=== PATIENT | male | born 1935 | race Caucasian/White ===

== ENCOUNTER 2021-03-17 10:36 | Outpatient (CLI) | payer MEDICARE ==
[~2021-03-17 10:36] MED LIST: ALLO100T PO; ASPI-1264 PO; BUPR150T8 PO; CITA20TA28 PO; FAMO-1 PO; HYDR12.522 PO; OMEP-84 PO; SOTA80TA73 PO
== END 2021-03-17 23:59 | disposition home or self-care (01) ==
LOC: 64 CT 10:36
PROVIDERS: ATTEND Podiatrist Foot & Ankle Surgery
DX: M77.31 Calcaneal spur, right foot (principal); M62.571 Muscle wasting and atrophy, not elsewhere classified, right ankle and foot; M19.071 Primary osteoarthritis, right ankle and foot
CPT/HCPCS: 73700

== ENCOUNTER 2023-09-07 15:46 | Emergency (ER) | payer MEDICARE ==
[~2023-09-07] VITALS: Ht 188 cm; Wt 106.8 kg
[2023-09-07 15:50] VITALS: BP 127/83; PULSE 71; RESP 18; TEMP 97.9; O2SAT 98
== END 2023-09-07 17:39 | disposition home or self-care (01) ==
LOC: ER 15:47
DX: S70.01XA Contusion of right hip, initial encounter (principal); S60.222A Contusion of left hand, initial encounter; Z88.0 Allergy status to penicillin; W19.XXXA Unspecified fall, initial encounter; Y93.89 Activity, other specified; Y92.89 Other specified places as the place of occurrence of the external cause; Y99.8 Other external cause status
CPT/HCPCS: 73130; 73502; 99284

== ENCOUNTER 2023-10-26 01:10 | Inpatient (IN) | payer MEDICARE ==
[2023-10-26] VITALS (7 sets, daily range): BP systolic 101–132; BP diastolic 70–79; PULSE 69–70; RESP 12–22; TEMP 97.4–98; O2SAT 94–99
[~2023-10-26] VITALS: Ht 188 cm; Wt 107.3 kg
[2023-10-26 01:35] LABS: BASOPHILS # (AUTO) 0.1 X10'3 (0-0.2); BASOPHILS % (AUTO) 0.9 % (0-1); EOSINOPHILS # (AUTO) 0.2 X10'3 (0-0.9); EOSINOPHILS % (AUTO) 2.5 % (0-6); HEMATOCRIT 39.2 % (42.0-52.0); HEMOGLOBIN 13.2 g/dl (14.0-17.9); LYMPHOCYTES % (AUTO) 22.1 % (21-51); MEAN CORPUSCULAR HEMOGLOBIN 33.3 PG (27.0-31.0); MEAN CORPUSCULAR HGB CONC 33.6 g/dL (33.0-36.5); MEAN CORPUSCULAR VOLUME 99.1 FL (78-98); MEAN PLATELET VOLUME 8.7 FL (7.4-10.4); MONOCYTES # (AUTO) 0.9 X10'3 (0-0.9); MONOCYTES % (AUTO) 10.5 % (2-12); NEUTROPHILS # (AUTO) 5.8 X10'3 (1.8-7.7); PLATELET COUNT 157 X10'3 (140-440); RED BLOOD COUNT 3.96 X10'6 (4.70-6.10); RED CELL DISTRIBUTION WIDTH 15.2 % (11.5-14.5)
[2023-10-26 01:55] LABS: ALBUMIN 3.6 G/DL (3.4-5.0); ANION GAP 5 (8-16); BLOOD UREA NITROGEN 21 MG/DL (7-18); BUN/CREATININE RATIO 11.7 (10.0-20.0); CALCIUM 9.2 MG/DL (8.5-10.1); CHLORIDE 108 MMOL/L (99-107); GLUCOSE 128 MG/DL (70-104); POTASSIUM 3.5 MMOL/L (3.5-5.1); PRO BRAIN NATRIURETIC PEPTIDE 5892 PG/ML (0-450); SODIUM 143 MMOL/L (135-145); TOTAL CARBON DIOXIDE 29.7 MMOL/L (24-32); eCRCL 34 ML/MIN; eGFR 36 ML/MIN
[2023-10-26] MEDS ORDERED: PREG150C47 PO (03:01)
[2023-10-26] MEDS ORDERED: WARF3TAB56 (03:01)
[2023-10-26] MEDS ORDERED: ROSU40TA22 PO (03:01)
[2023-10-26] MEDS ORDERED: METO-384 PO (03:01)
[2023-10-26] MEDS ORDERED: FURO40TA4 PO (03:01)
[2023-10-26] MEDS ORDERED: LEVO25TA7 PO (03:01)
[2023-10-26] MEDS ORDERED: LOSA100T58 PO (03:01)
[2023-10-26] MEDS ORDERED: SPIR25TA5 PO (03:01)
[2023-10-26] MEDS ORDERED: PREG75CA76 PO (03:01)
[2023-10-26] MEDS ORDERED: CETI10TA15 PO (03:12)
[2023-10-26] MEDS ORDERED: acetaminophen 325mg tablet PO PRN (03:35)
[2023-10-26] MEDS ORDERED: magnesium Cl slow-release 64mg tablet PO PRN (03:35)
[2023-10-26] MEDS ORDERED: magnesium hydroxide 30ml (MOM) UD suspension PO PRN (03:35)
[2023-10-26] MEDS ORDERED: magnesium 2GM in 50ml NS 50 ML IV PRN (03:35)
[2023-10-26] MEDS ORDERED: mag hydrox/Alum hydrox/simeth 30ml oral suspension PO PRN (03:35)
[2023-10-26] MEDS ORDERED: magnesium 4gm in 100ml NS 100 ML IV PRN (03:35)
[2023-10-26] MEDS ORDERED: potassium Cl 20 mEq SR tablet PO PRN (03:35)
[2023-10-26] MEDS ORDERED: potassium Cl 40MEQ/1/2NS 520ml 520 ML IV PRN (03:35)
[2023-10-26] MEDS: furosemide 10 MG/1 ML 10ml inj IV ONE (04:13)
[2023-10-26 05:40] LABS: BILIRUBIN,URINE NEGATIVE (Neg); CLARITY,URINE CLEAR (Clear); COLOR,URINE YELLOW (Yellow); GLUCOSE, URINE NEGATIVE (Neg); KETONES,URINE NEGATIVE (Neg); LEUKOCYTE ESTERASE ,URINE NEGATIVE (Neg); NITRITES, URINE NEGATIVE (Neg); OCCULT BLOOD,URINE TRACE-INTACT (Neg); PH,URINE 6.5 (4.8-8.0); PROTEIN,URINE TRACE mg/dl (Neg); UROBILINOGEN,URINE 0.2 E.U/dL (0.2-1.0)
[2023-10-26 05:44] LABS: UA COLLECTION TYPE URINAL
[2023-10-26 05:47] LABS: BACTERIA,URINE NONE SEEN /HPF (Neg); MUCUS STRANDS NONE SEEN /LPF (Neg); RBC,URINE 0-2 /HPF (0-2); SQUAMOUS EPITHELIAL CELL,UR NONE SEEN /LPF (FEW); WBC,URINE NONE SEEN /HPF (0-4)
[2023-10-26 07:21] LABS: ALANINE AMINOTRANSFERASE 25 U/L (12-78); ALBUMIN 3.7 G/DL (3.4-5.0); ALBUMIN/GLOBULIN RATIO 1.1 (1.1-1.5); ALKALINE PHOSPHATASE 71 IU/L (46-116); ASPARTATE AMINO TRANSFERASE 23 U/L (10-37); BILIRUBIN,TOTAL 1.3 MG/DL (0.1-1.0); MAGNESIUM 2.1 MG/DL (1.5-2.4); PHOSPHORUS 2.6 MG/DL (2.3-4.5); TOTAL PROTEIN 7.1 G/DL (6.4-8.2)
[2023-10-26 07:39] LABS: BILIRUBIN,DIRECT 0.4 MG/DL (0-0.3)
[2023-10-26] MEDS: K and/or MAG REPLACEMENT MC SCH (08:00)
[2023-10-26] MEDS: docusate sod 100mg capsule PO SCH (08:00)
[2023-10-26] MEDS: furosemide 40mg/4ml inj IV SCH (08:03)
[2023-10-26] MEDS: heparin, porcine 5000 units/ml vial SQ SCH (08:05)
[2023-10-26 08:10] LABS: HEMOGLOBIN A1C 5.7 % (4.5-6.2)
[2023-10-26] MEDS: ciprofloxacin lact 400MG/200ML 200 ML IV SCH (12:13)
[2023-10-26] MEDS: metroNIDAZOLE-Flagyl 500mg/NS 100 ML IV SCH (13:30)
[2023-10-26] MEDS: ondansetron/PF 4mg/2ml inj IV PRN (19:23)
[2023-10-26] MEDS: pantoprazole 40 MG vial IV SCH (20:40)
[2023-10-27 02:00] VITALS: BP 114/67; PULSE 71; RESP 18; TEMP 98.4; O2SAT 94
[2023-10-27 06:00] VITALS: BP 124/66; PULSE 70; RESP 18; TEMP 98.1; O2SAT 95
[2023-10-27 07:13] LABS: BASOPHILS # (AUTO) 0.1 X10'3 (0-0.2); BASOPHILS % (AUTO) 1.1 % (0-1); EOSINOPHILS # (AUTO) 0.3 X10'3 (0-0.9); EOSINOPHILS % (AUTO) 3.3 % (0-6); HEMATOCRIT 43.5 % (42.0-52.0); HEMOGLOBIN 14.9 g/dl (14.0-17.9); LYMPHOCYTES # (AUTO) 1.9 X10'3 (1.1-4.8); LYMPHOCYTES % (AUTO) 24.4 % (21-51); MEAN CORPUSCULAR HEMOGLOBIN 33.9 PG (27.0-31.0); MEAN CORPUSCULAR HGB CONC 34.2 g/dL (33.0-36.5); MEAN CORPUSCULAR VOLUME 99.2 FL (78-98); MEAN PLATELET VOLUME 9.3 FL (7.4-10.4); MONOCYTES % (AUTO) 12.8 % (2-12); NEUTROPHILS # (AUTO) 4.5 X10'3 (1.8-7.7); NEUTROPHILS % (AUTO) 58.4 % (42-75); PLATELET COUNT 193 X10'3 (140-440); RED BLOOD COUNT 4.38 X10'6 (4.70-6.10); RED CELL DISTRIBUTION WIDTH 15.5 % (11.5-14.5); WHITE BLOOD COUNT 7.7 X10'3 (4.5-11.0)
[2023-10-27 07:30] LABS: ALBUMIN 3.6 G/DL (3.4-5.0); ANION GAP 7 (8-16); BLOOD UREA NITROGEN 27 MG/DL (7-18); BUN/CREATININE RATIO 14.8 (10.0-20.0); CALCIUM 10.1 MG/DL (8.5-10.1); CHLORIDE 103 MMOL/L (99-107); CHOL/HDL RATIO 2.1 (0.00-4.99); CHOLESTEROL 124 MG/DL (0-200); CREATININE 1.83 MG/DL (0.60-1.10); GLUCOSE 100 MG/DL (70-104); HDL CHOLESTEROL 59 MG/DL (35-60); LDL CHOLESTEROL 55 MG/DL (50-100); PHOSPHORUS 4.2 MG/DL (2.3-4.5); SODIUM 141 MMOL/L (135-145); TOTAL CARBON DIOXIDE 30.7 MMOL/L (24-32); TRIGLYCERIDES 43 MG/DL (20-135); eCRCL 33 ML/MIN; eGFR 35 ML/MIN
[2023-10-27 07:33] LABS: POTASSIUM 3.3 MMOL/L (3.5-5.1)
[2023-10-27 07:39] LABS: MAGNESIUM 2.1 MG/DL (1.5-2.4)
[2023-10-27] MEDS: potassium Cl 20 mEq SR tablet PO PRN (07:55)
[2023-10-27 08:00] VITALS: RESP 18; O2SAT 95
[2023-10-27] MEDS ORDERED: PREG150C47 PO (11:05)
== END 2023-10-27 12:49 | disposition home or self-care (01) | DRG 291 ==
LOC: ER 01:11 → ED HOLD 03:37 → PCU 3S 04:34
PROVIDERS: ADMIT Internal Medicine Pulmonary Disease; ATTEND Internal Medicine
DX: I13.0 Hypertensive heart and chronic kidney disease with heart failure and stage 1 through stage 4 chronic kidney disease, or unspecified chronic kidney disease (principal); I50.23 Acute on chronic systolic (congestive) heart failure; N18.4 Chronic kidney disease, stage 4 (severe); I48.0 Paroxysmal atrial fibrillation; I25.5 Ischemic cardiomyopathy; I25.10 Atherosclerotic heart disease of native coronary artery without angina pectoris; K21.9 Gastro-esophageal reflux disease without esophagitis; G62.9 Polyneuropathy, unspecified; E78.5 Hyperlipidemia, unspecified; G89.4 Chronic pain syndrome; I73.9 Peripheral vascular disease, unspecified; G47.33 Obstructive sleep apnea (adult) (pediatric); Z95.810 Presence of automatic (implantable) cardiac defibrillator; I25.2 Old myocardial infarction; Z88.0 Allergy status to penicillin; Z79.899 Other long term (current) drug therapy
CPT/HCPCS: 36415; 71045; 74176; 80048; 80061; 80076; 81001; 83036; 83735; 83880; 84100; 84145; 84484; 85025; 87081; 93005; 93306; 97161; 97530; 99285; C9113; G0378; J0744; J1644; J1940; J2405; J3490; J7040

== ENCOUNTER 2024-02-14 15:37 | Inpatient (IN) | payer MEDICARE ==
[~2024-02-14] VITALS: Ht 190.5 cm; Wt 107.0 kg
[~2024-02-14 15:37] MED LIST changes: -ASPI-1264 PO; +FURO40TA4 PO; -HYDR12.522 PO; +LEVO25TA7 PO; +LOSA100T58 PO; +METO-384 PO; +PREG150C47 PO; +PREG75CA76 PO; +ROSU40TA71 PO; +SPIR25TA5 PO; +WARF3TAB56
[2024-02-14 16:05] LABS: BASOPHILS % (AUTO) 0.5 % (0-1); EOSINOPHILS # (AUTO) 0.1 X10'3 (0-0.9); HEMATOCRIT 42.6 % (42.0-52.0); HEMOGLOBIN 14.1 g/dl (14.0-17.9); LYMPHOCYTES # (AUTO) 1.7 X10'3 (1.1-4.8); LYMPHOCYTES % (AUTO) 21.5 % (21-51); MEAN CORPUSCULAR HEMOGLOBIN 33.2 PG (27.0-31.0); MEAN CORPUSCULAR HGB CONC 33.1 g/dL (33.0-36.5); MEAN CORPUSCULAR VOLUME 100.2 FL (78-98); MEAN PLATELET VOLUME 8.7 FL (7.4-10.4); MONOCYTES # (AUTO) 0.7 X10'3 (0-0.9); MONOCYTES % (AUTO) 9.5 % (2-12); NEUTROPHILS # (AUTO) 5.2 X10'3 (1.8-7.7); NEUTROPHILS % (AUTO) 67.5 % (42-75); PLATELET COUNT 171 X10'3 (140-440); RED BLOOD COUNT 4.25 X10'6 (4.70-6.10); RED CELL DISTRIBUTION WIDTH 16.5 % (11.5-14.5); WHITE BLOOD COUNT 7.7 X10'3 (4.5-11.0)
[2024-02-14 16:16] LABS: ALBUMIN 3.9 G/DL (3.4-5.0); ANION GAP 15 (8-16); BLOOD UREA NITROGEN 32 MG/DL (7-18); BUN/CREATININE RATIO 18.2 (10.0-20.0); CALCIUM 9.5 MG/DL (8.5-10.1); CHLORIDE 110 MMOL/L (99-107); CREATININE 1.76 MG/DL (0.60-1.10); GLUCOSE 105 MG/DL (70-104); SODIUM 145 MMOL/L (135-145); TOTAL CARBON DIOXIDE 20.4 MMOL/L (24-32); eCRCL 35 ML/MIN; eGFR 37 ML/MIN
[2024-02-14 16:19] LABS: APTT 38 SECONDS (22-32); PROTHROMBIN TIME 29.3 SECONDS (9.0-12.0)
[2024-02-14 16:21] LABS: POTASSIUM 4.7 MMOL/L (3.5-5.1)
[2024-02-14 19:33] LABS: BILIRUBIN,URINE SMALL (Neg); CLARITY,URINE CLEAR (Clear); COLOR,URINE YELLOW (Yellow); GLUCOSE, URINE NEGATIVE (Neg); KETONES,URINE 15 mg/dl (Neg); LEUKOCYTE ESTERASE ,URINE NEGATIVE (Neg); NITRITES, URINE NEGATIVE (Neg); OCCULT BLOOD,URINE MODERATE (Neg); PH,URINE 5.5 (4.8-8.0); PROTEIN,URINE 30 mg/dl (Neg)
[2024-02-14 19:38] LABS: UA COLLECTION TYPE URINAL
[2024-02-14 20:08] LABS: AMORPHOUS URATES 1+; BACTERIA,URINE FEW /HPF (Neg); RBC,URINE 0-2 /HPF (0-2); SQUAMOUS EPITHELIAL CELL,UR FEW /LPF (FEW); WBC,URINE 0-4 /HPF (0-4)
[2024-02-14] MEDS ORDERED: magnesium sulf-water 2g/50mL 50 ML IV PRN (21:00)
[2024-02-14] MEDS ORDERED: mag hydrox/Alum hydrox/simeth 30ml oral suspension PO PRN (21:00)
[2024-02-14] MEDS ORDERED: magnesium hydroxide 30ml (MOM) UD suspension PO PRN (21:00)
[2024-02-14] MEDS ORDERED: ondansetron/PF 4mg/2ml inj IV PRN (21:00)
[2024-02-14] MEDS ORDERED: PERFLUTREN PROTEIN-A MICROSPHR (Optison) 0.22 MG/ML 3ML VIAL IV PRN (21:00)
[2024-02-14] MEDS: normal saline 1000ml 1,000 ML IV SCH (21:00)
[2024-02-14] MEDS ORDERED: potassium Cl 20 mEq SR tablet PO PRN ×2 (21:00)
[2024-02-14] MEDS ORDERED: acetaminophen 325mg tablet PO PRN (21:00)
[2024-02-14] MEDS ORDERED: potassium Cl 40MEQ/1/2NS 520ml 520 ML IV PRN (21:00)
[2024-02-14] MEDS ORDERED: magnesium sulf-water 4G/100mL 100 ML IV PRN (21:00)
[2024-02-14] MEDS ORDERED: magnesium Cl slow-release 64mg tablet PO PRN (21:00)
[2024-02-14 23:24] LABS: ALBUMIN 3.3 G/DL (3.4-5.0); ANION GAP 11 (8-16); BLOOD UREA NITROGEN 31 MG/DL (7-18); BUN/CREATININE RATIO 19.6 (10.0-20.0); CALCIUM 8.8 MG/DL (8.5-10.1); CHLORIDE 111 MMOL/L (99-107); CREATININE 1.58 MG/DL (0.60-1.10); GLUCOSE 113 MG/DL (70-104); SODIUM 145 MMOL/L (135-145); TOTAL CARBON DIOXIDE 23.4 MMOL/L (24-32); eCRCL 39 ML/MIN; eGFR 42 ML/MIN
[2024-02-14 23:26] LABS: BASOPHILS # (AUTO) 0.1 X10'3 (0-0.2); BASOPHILS % (AUTO) 0.7 % (0-1); EOSINOPHILS # (AUTO) 0.1 X10'3 (0-0.9); EOSINOPHILS % (AUTO) 1.6 % (0-6); HEMATOCRIT 39.4 % (42.0-52.0); HEMOGLOBIN 13.2 g/dl (14.0-17.9); LYMPHOCYTES # (AUTO) 1.7 X10'3 (1.1-4.8); LYMPHOCYTES % (AUTO) 23.6 % (21-51); MEAN CORPUSCULAR HEMOGLOBIN 33.1 PG (27.0-31.0); MEAN CORPUSCULAR HGB CONC 33.4 g/dL (33.0-36.5); MEAN CORPUSCULAR VOLUME 98.9 FL (78-98); MEAN PLATELET VOLUME 8.5 FL (7.4-10.4); MONOCYTES # (AUTO) 0.6 X10'3 (0-0.9); MONOCYTES % (AUTO) 8.7 % (2-12); NEUTROPHILS # (AUTO) 4.6 X10'3 (1.8-7.7); NEUTROPHILS % (AUTO) 65.4 % (42-75); PLATELET COUNT 151 X10'3 (140-440); RED BLOOD COUNT 3.98 X10'6 (4.70-6.10); RED CELL DISTRIBUTION WIDTH 16.2 % (11.5-14.5); WHITE BLOOD COUNT 7.1 X10'3 (4.5-11.0)
[2024-02-14 23:28] LABS: APTT 39 SECONDS (22-32); INR 3.4 INR; PROTHROMBIN TIME 32.2 SECONDS (9.0-12.0)
[2024-02-14 23:35] LABS: HEMOGLOBIN A1C 5.6 % (4.5-6.2)
[2024-02-15 07:40] VITALS: BP 142/67; PULSE 70; RESP 20; TEMP 98.7; O2SAT 100
[2024-02-15 08:00] VITALS: RESP 16; O2SAT 100
[2024-02-15] MEDS ORDERED: furosemide 40mg tablet PO SCH (08:00)
[2024-02-15] MEDS: K and/or MAG REPLACEMENT MC SCH (08:00)
[2024-02-15 08:05] LABS: BASOPHILS # (AUTO) 0.1 X10'3 (0-0.2); BASOPHILS % (AUTO) 0.7 % (0-1); EOSINOPHILS # (AUTO) 0.2 X10'3 (0-0.9); EOSINOPHILS % (AUTO) 2.3 % (0-6); HEMATOCRIT 39.4 % (42.0-52.0); HEMOGLOBIN 12.9 g/dl (14.0-17.9); LYMPHOCYTES % (AUTO) 25.8 % (21-51); MEAN CORPUSCULAR HEMOGLOBIN 32.6 PG (27.0-31.0); MEAN CORPUSCULAR HGB CONC 32.9 g/dL (33.0-36.5); MEAN CORPUSCULAR VOLUME 99.4 FL (78-98); MEAN PLATELET VOLUME 8.8 FL (7.4-10.4); MONOCYTES # (AUTO) 0.8 X10'3 (0-0.9); MONOCYTES % (AUTO) 10.1 % (2-12); NEUTROPHILS # (AUTO) 4.8 X10'3 (1.8-7.7); NEUTROPHILS % (AUTO) 61.1 % (42-75); PLATELET COUNT 147 X10'3 (140-440); RED BLOOD COUNT 3.96 X10'6 (4.70-6.10); RED CELL DISTRIBUTION WIDTH 16.1 % (11.5-14.5); WHITE BLOOD COUNT 7.8 X10'3 (4.5-11.0)
[2024-02-15 08:07] LABS: INR 3.3 INR; PROTHROMBIN TIME 31.4 SECONDS (9.0-12.0)
[2024-02-15] MEDS: levoTHYROXINE 25mcg tablet PO SCH (08:18)
[2024-02-15] MEDS: losartan 50mg tablet PO SCH (08:19)
[2024-02-15] MEDS: buPROPion 100mg tablet PO SCH (08:20)
[2024-02-15] MEDS: pregabalin 75mg capsule PO SCH ×2 (08:20→19:39)
[2024-02-15] MEDS: docusate sod 100mg capsule PO SCH (08:21)
[2024-02-15 09:16] LABS: ALANINE AMINOTRANSFERASE 24 U/L (12-78); ALBUMIN 3.2 G/DL (3.4-5.0); ALBUMIN/GLOBULIN RATIO 1.1 (1.1-1.5); ALKALINE PHOSPHATASE 61 IU/L (46-116); ANION GAP 10 (8-16); ASPARTATE AMINO TRANSFERASE 47 U/L (10-37); BILIRUBIN,TOTAL 1.1 MG/DL (0.1-1.0); BLOOD UREA NITROGEN 29 MG/DL (7-18); BUN/CREATININE RATIO 19.5 (10.0-20.0); CALCIUM 8.9 MG/DL (8.5-10.1); CHLORIDE 111 MMOL/L (99-107); CHOL/HDL RATIO 1.6 (0.00-4.99); CHOLESTEROL 105 MG/DL (0-200); CREATININE 1.49 MG/DL (0.60-1.10); GLUCOSE 85 MG/DL (70-104); HDL CHOLESTEROL 64 MG/DL (35-60); LDL CHOLESTEROL 34 MG/DL (50-100); MAGNESIUM 1.9 MG/DL (1.5-2.4); POTASSIUM 3.8 MMOL/L (3.5-5.1); SODIUM 143 MMOL/L (135-145); TOTAL CARBON DIOXIDE 22.2 MMOL/L (24-32); TOTAL PROTEIN 6.2 G/DL (6.4-8.2); TRIGLYCERIDES 37 MG/DL (20-135); eCRCL 41 ML/MIN; eGFR 45 ML/MIN
[2024-02-15 11:00] VITALS: BP 112/43; PULSE 70; RESP 24; TEMP 97.5; O2SAT 96
[2024-02-15 11:03] LABS: THYROID STIMULATING HORMONE 2.92 ulU/ml (0.34-4.50)
[2024-02-15 15:00] VITALS: BP 112/58; PULSE 70; RESP 15; TEMP 98.6; O2SAT 97
[2024-02-15 18:00] VITALS: BP 126/66; PULSE 66; RESP 18; TEMP 98.5; O2SAT 98
[2024-02-15 20:00] VITALS: RESP 18; O2SAT 98
[2024-02-16 02:00] VITALS: BP 120/53; PULSE 70; RESP 16; TEMP 97.9; O2SAT 95
[2024-02-16 07:00] VITALS: BP 120/61; PULSE 70; RESP 20; TEMP 98; O2SAT 98
[2024-02-16 07:02] LABS: BASOPHILS # (AUTO) 0.1 X10'3 (0-0.2); BASOPHILS % (AUTO) 0.8 % (0-1); EOSINOPHILS # (AUTO) 0.2 X10'3 (0-0.9); EOSINOPHILS % (AUTO) 3.4 % (0-6); HEMOGLOBIN 12.2 g/dl (14.0-17.9); LYMPHOCYTES # (AUTO) 2.3 X10'3 (1.1-4.8); LYMPHOCYTES % (AUTO) 34.4 % (21-51); MEAN CORPUSCULAR HEMOGLOBIN 32.8 PG (27.0-31.0); MEAN CORPUSCULAR HGB CONC 32.9 g/dL (33.0-36.5); MEAN CORPUSCULAR VOLUME 99.6 FL (78-98); MONOCYTES # (AUTO) 0.6 X10'3 (0-0.9); MONOCYTES % (AUTO) 9.9 % (2-12); NEUTROPHILS # (AUTO) 3.4 X10'3 (1.8-7.7); NEUTROPHILS % (AUTO) 51.5 % (42-75); PLATELET COUNT 138 X10'3 (140-440); RED BLOOD COUNT 3.71 X10'6 (4.70-6.10); RED CELL DISTRIBUTION WIDTH 16.3 % (11.5-14.5); WHITE BLOOD COUNT 6.6 X10'3 (4.5-11.0)
[2024-02-16 07:13] LABS: INR 1.8 INR; PROTHROMBIN TIME 18.3 SECONDS (9.0-12.0)
[2024-02-16 07:22] LABS: ALANINE AMINOTRANSFERASE 18 U/L (12-78); ALBUMIN 2.8 G/DL (3.4-5.0); ALKALINE PHOSPHATASE 53 IU/L (46-116); ANION GAP 11 (8-16); ASPARTATE AMINO TRANSFERASE 22 U/L (10-37); BILIRUBIN,TOTAL 0.8 MG/DL (0.1-1.0); BLOOD UREA NITROGEN 25 MG/DL (7-18); BUN/CREATININE RATIO 18.5 (10.0-20.0); CALCIUM 8.6 MG/DL (8.5-10.1); CHLORIDE 113 MMOL/L (99-107); CREATININE 1.35 MG/DL (0.60-1.10); GLUCOSE 87 MG/DL (70-104); MAGNESIUM 2.1 MG/DL (1.5-2.4); SODIUM 144 MMOL/L (135-145); TOTAL PROTEIN 5.7 G/DL (6.4-8.2); eCRCL 45 ML/MIN; eGFR 50 ML/MIN
[2024-02-16] MEDS: ROSUVASTATIN CALCIUM 5 MG TABLET PO SCH (09:36)
[2024-02-16] MEDS: metoprolol succinate 25mg (24-HOUR) SR. Tablet PO SCH (09:38)
[2024-02-16] MEDS: spironolactone 25 MG tablet PO SCH (09:38)
[2024-02-16 11:00] VITALS: BP 104/47; PULSE 70; RESP 18; TEMP 97.8; O2SAT 96
[2024-02-16 15:00] VITALS: BP 123/66; PULSE 70; RESP 12; TEMP 97.6; O2SAT 97
[2024-02-16] MEDS ORDERED: LOSA50TA64 PO (15:30)
[2024-02-16] MEDS ORDERED: warfarin 5mg tablet PO ONE (21:00)
== END 2024-02-16 17:50 | disposition home health service (06) | DRG 314 ==
LOC: ER 15:38 → ED HOLD 21:57 → PCU 3S 02-15 06:35
PROVIDERS: ADMIT Internal Medicine Critical Care Medicine; ATTEND Family Medicine
DX: I95.9 Hypotension, unspecified (principal); G93.41 Metabolic encephalopathy; N17.0 Acute kidney failure with tubular necrosis; I50.22 Chronic systolic (congestive) heart failure; I13.0 Hypertensive heart and chronic kidney disease with heart failure and stage 1 through stage 4 chronic kidney disease, or unspecified chronic kidney disease; R47.01 Aphasia; E86.0 Dehydration; G62.9 Polyneuropathy, unspecified; N18.9 Chronic kidney disease, unspecified; I25.2 Old myocardial infarction; Z88.0 Allergy status to penicillin; Z95.810 Presence of automatic (implantable) cardiac defibrillator; T46.5X5A Adverse effect of other antihypertensive drugs, initial encounter
CPT/HCPCS: 36415; 70450; 71045; 80048; 80053; 80061; 81001; 82140; 82607; 82948; 83036; 83735; 84443; 84484; 85025; 85610; 85730; 87081; 92508; 92616; 93005; 93306; 93880; 97116; 97161; 97530; 99285; G0378; J7030

== ENCOUNTER 2024-06-11 04:35 | Inpatient (IN) | payer MEDICARE ==
[~2024-06-11] VITALS: Ht 188 cm; Wt 101.0 kg
[~2024-06-11 04:35] MED LIST changes: -CITA20TA28 PO; -FAMO-1 PO; -LOSA100T58 PO; +LOSA50TA64 PO; -ROSU40TA71 PO; +ROSU40TA89 PO; -SOTA80TA73 PO
[2024-06-11 05:22] LABS: BASOPHILS % (AUTO) 0.5 % (0-1); EOSINOPHILS # (AUTO) 0.2 X10'3 (0-0.9); EOSINOPHILS % (AUTO) 2.1 % (0-6); HEMATOCRIT 43.5 % (42.0-52.0); HEMOGLOBIN 14.6 g/dl (14.0-17.9); LYMPHOCYTES # (AUTO) 1.4 X10'3 (1.1-4.8); LYMPHOCYTES % (AUTO) 16.5 % (21-51); MEAN CORPUSCULAR HEMOGLOBIN 33.2 PG (27.0-31.0); MEAN CORPUSCULAR HGB CONC 33.6 g/dL (33.0-36.5); MEAN PLATELET VOLUME 9.8 FL (7.4-10.4); MONOCYTES # (AUTO) 0.9 X10'3 (0-0.9); NEUTROPHILS # (AUTO) 6.1 X10'3 (1.8-7.7); NEUTROPHILS % (AUTO) 70.9 % (42-75); PLATELET COUNT 158 X10'3 (140-440); RED CELL DISTRIBUTION WIDTH 15.6 % (11.5-14.5); WHITE BLOOD COUNT 8.6 X10'3 (4.5-11.0)
[2024-06-11 05:36] LABS: ALANINE AMINOTRANSFERASE 55 U/L (12-78); ALBUMIN 3.8 G/DL (3.4-5.0); ALBUMIN/GLOBULIN RATIO 1.1 (1.1-1.5); ALKALINE PHOSPHATASE 93 IU/L (46-116); ANION GAP 7 (8-16); ASPARTATE AMINO TRANSFERASE 35 U/L (10-37); BILIRUBIN,TOTAL 1.3 MG/DL (0.1-1.0); BLOOD UREA NITROGEN 20 MG/DL (7-18); BUN/CREATININE RATIO 9.9 (10.0-20.0); CALCIUM 11.2 MG/DL (8.5-10.1); CHLORIDE 108 MMOL/L (99-107); CREATININE 2.02 MG/DL (0.60-1.10); GLUCOSE 104 MG/DL (70-104); POTASSIUM 4.2 MMOL/L (3.5-5.1); SODIUM 143 MMOL/L (135-145); TOTAL PROTEIN 7.3 G/DL (6.4-8.2); eCRCL 29 ML/MIN; eGFR 31 ML/MIN
[2024-06-11] MEDS: ondansetron/PF 4mg/2ml inj IV ONE (05:39)
[2024-06-11] MEDS: ondansetron/PF 4mg/2ml inj IV STA (05:41)
[2024-06-11 05:46] LABS: PRO BRAIN NATRIURETIC PEPTIDE 10963 PG/ML (0-450)
[2024-06-11] MEDS: nitroGLYCERIN 0.4mg/hour patch TD ONE (06:58)
[2024-06-11] MEDS: furosemide 10 MG/1 ML 10ml inj IV ONE (07:00)
[2024-06-11] MEDS ORDERED: potassium Cl 40MEQ/1/2NS 520ml 520 ML IV PRN (07:40)
[2024-06-11] MEDS ORDERED: magnesium sulf-water 2g/50mL 50 ML IV PRN (07:40)
[2024-06-11] MEDS ORDERED: magnesium hydroxide 30ml (MOM) UD suspension PO PRN (07:40)
[2024-06-11] MEDS ORDERED: nitroGLYCERIN 0.4mg SUBLingual tab SL PRN (07:40)
[2024-06-11] MEDS ORDERED: acetaminophen 325mg tablet PO PRN ×2 (07:40)
[2024-06-11] MEDS ORDERED: mag hydrox/Alum hydrox/simeth 30ml oral suspension PO PRN (07:40)
[2024-06-11] MEDS ORDERED: morphine 2 MG/ML inj. syringe IV PRN ×2 (07:40)
[2024-06-11] MEDS ORDERED: magnesium sulf-water 4G/100mL 100 ML IV PRN (07:40)
[2024-06-11] MEDS ORDERED: HYDROcodone/acetaminophen 10/325mg tab PO PRN (07:40)
[2024-06-11] MEDS ORDERED: HYDROcodone/acetaminophen 5mg/325mg tablet PO PRN (07:40)
[2024-06-11] MEDS ORDERED: potassium Cl 20 mEq SR tablet PO PRN ×2 (07:40)
[2024-06-11] MEDS ORDERED: hydrALAZINE 20mg/ml inj. IV PRN (07:50)
[2024-06-11] MEDS: docusate sod 100mg capsule PO SCH (08:00)
[2024-06-11] MEDS: K and/or MAG REPLACEMENT MC SCH (08:09)
[2024-06-11] MEDS: aspirin 81mg, enteric-coated 1 TAB TABLET.DR PO SCH (08:14)
[2024-06-11] MEDS: heparin, porcine 5000 units/ml vial SQ SCH (08:14)
[2024-06-11] MEDS: metoprolol succinate 25mg (24-HOUR) SR. Tablet PO SCH (08:14)
[2024-06-11] MEDS: spironolactone 25 MG tablet PO ONE (12:16)
[2024-06-11 13:04] LABS: ABG BASE EXCESS -0.6 mmol/L (-2.0-3.0); ABG OXYGEN SATURATION 89.9 % (94.0-98.0); ABG PCO2 (T) 34.3 mmHg (35.0-48.0); ABG PH (T) 7.443 (7.350-7.450); ABG PO2 (T) 53.5 mmHg (83.0-108.0); ALLEN'S TEST POSITIVE; FCOHb 0.5 % (0.5-1.5); FMetHb 0.3 % (0.0-1.5); FO2Hb 89.2 % (94.0-98.0); MODE ROOM AIR; PATIENT TEMPERATURE 36.6; TOTAL HEMOGLOBIN 13.7 G/dl (13.5-17.5)
[2024-06-11 18:00] VITALS: BP 110/71; PULSE 72; RESP 16; TEMP 97.3; O2SAT 95
[2024-06-11] MEDS: apixaban 2.5mg tablet PO SCH (19:52)
[2024-06-11 20:15] VITALS: BP 109/64
[2024-06-11] MEDS: furosemide 40mg/4ml inj IV SCH (20:16)
[2024-06-11 22:00] VITALS: BP 137/79; PULSE 70; RESP 21; TEMP 97; O2SAT 92
[2024-06-12] VITALS (8 sets, daily range): BP systolic 98–143; BP diastolic 48–80; PULSE 70; RESP 14–25; TEMP 97.5–98.4; O2SAT 84–97
[2024-06-12 06:40] LABS: BASOPHILS % (AUTO) 0.8 % (0-1); EOSINOPHILS # (AUTO) 0.2 X10'3 (0-0.9); EOSINOPHILS % (AUTO) 3.2 % (0-6); HEMATOCRIT 39.8 % (42.0-52.0); HEMOGLOBIN 13.4 g/dl (14.0-17.9); LYMPHOCYTES # (AUTO) 1.5 X10'3 (1.1-4.8); LYMPHOCYTES % (AUTO) 24.3 % (21-51); MEAN CORPUSCULAR HGB CONC 33.6 g/dL (33.0-36.5); MEAN PLATELET VOLUME 9.8 FL (7.4-10.4); MONOCYTES # (AUTO) 0.8 X10'3 (0-0.9); MONOCYTES % (AUTO) 12.6 % (2-12); NEUTROPHILS # (AUTO) 3.7 X10'3 (1.8-7.7); NEUTROPHILS % (AUTO) 59.1 % (42-75); PLATELET COUNT 127 X10'3 (140-440); RED BLOOD COUNT 4.06 X10'6 (4.70-6.10); RED CELL DISTRIBUTION WIDTH 15.7 % (11.5-14.5); WHITE BLOOD COUNT 6.3 X10'3 (4.5-11.0)
[2024-06-12] MEDS: levoTHYROXINE 25mcg tablet PO SCH (07:30)
[2024-06-12 07:39] LABS: ALANINE AMINOTRANSFERASE 34 U/L (12-78); ALBUMIN 3.2 G/DL (3.4-5.0); ALBUMIN/GLOBULIN RATIO 0.9 (1.1-1.5); ALKALINE PHOSPHATASE 75 IU/L (46-116); ANION GAP 10 (8-16); ASPARTATE AMINO TRANSFERASE 29 U/L (10-37); BILIRUBIN,TOTAL 1.7 MG/DL (0.1-1.0); BLOOD UREA NITROGEN 21 MG/DL (7-18); BUN/CREATININE RATIO 11.7 (10.0-20.0); CALCIUM 9.9 MG/DL (8.5-10.1); CHLORIDE 104 MMOL/L (99-107); FREE T4 (FREE THYROXINE) 1.26 NG/DL (0.73-1.40); GLUCOSE 80 MG/DL (70-104); POTASSIUM 3.8 MMOL/L (3.5-5.1); SODIUM 143 MMOL/L (135-145); TOTAL CARBON DIOXIDE 28.7 MMOL/L (24-32); TOTAL PROTEIN 6.6 G/DL (6.4-8.2); URIC ACID 4.2 MG/DL (3.5-7.2); eCRCL 33 ML/MIN; eGFR 36 ML/MIN
[2024-06-12] MEDS: spironolactone 50 MG tablet PO SCH (09:06)
[2024-06-12] MEDS: ondansetron/PF 4mg/2ml inj IV PRN (13:07)
[2024-06-13 02:00] VITALS: BP 134/73; PULSE 70; RESP 17; TEMP 98.1; O2SAT 96
[2024-06-13 06:00] VITALS: BP 117/65; PULSE 70; RESP 18; TEMP 98.7; O2SAT 94
[2024-06-13 07:03] LABS: BASOPHILS # (AUTO) 0.1 X10'3 (0-0.2); BASOPHILS % (AUTO) 1.1 % (0-1); EOSINOPHILS # (AUTO) 0.3 X10'3 (0-0.9); EOSINOPHILS % (AUTO) 3.8 % (0-6); HEMATOCRIT 43.4 % (42.0-52.0); HEMOGLOBIN 14.5 g/dl (14.0-17.9); LYMPHOCYTES # (AUTO) 2.3 X10'3 (1.1-4.8); LYMPHOCYTES % (AUTO) 34.8 % (21-51); MEAN CORPUSCULAR HEMOGLOBIN 32.9 PG (27.0-31.0); MEAN CORPUSCULAR HGB CONC 33.4 g/dL (33.0-36.5); MEAN CORPUSCULAR VOLUME 98.3 FL (78-98); MEAN PLATELET VOLUME 9.7 FL (7.4-10.4); MONOCYTES # (AUTO) 0.8 X10'3 (0-0.9); MONOCYTES % (AUTO) 11.2 % (2-12); NEUTROPHILS # (AUTO) 3.3 X10'3 (1.8-7.7); NEUTROPHILS % (AUTO) 49.1 % (42-75); PLATELET COUNT 138 X10'3 (140-440); RED BLOOD COUNT 4.42 X10'6 (4.70-6.10); RED CELL DISTRIBUTION WIDTH 15.7 % (11.5-14.5); WHITE BLOOD COUNT 6.7 X10'3 (4.5-11.0)
[2024-06-13 07:33] LABS: ALANINE AMINOTRANSFERASE 25 U/L (12-78); ALBUMIN/GLOBULIN RATIO 0.8 (1.1-1.5); ALKALINE PHOSPHATASE 74 IU/L (46-116); ANION GAP 11 (8-16); ASPARTATE AMINO TRANSFERASE 24 U/L (10-37); BILIRUBIN,TOTAL 1.5 MG/DL (0.1-1.0); BLOOD UREA NITROGEN 34 MG/DL (7-18); BUN/CREATININE RATIO 15.7 (10.0-20.0); CALCIUM 9.8 MG/DL (8.5-10.1); CHLORIDE 101 MMOL/L (99-107); CREATININE 2.17 MG/DL (0.60-1.10); GLUCOSE 92 MG/DL (70-104); SODIUM 139 MMOL/L (135-145); TOTAL CARBON DIOXIDE 26.7 MMOL/L (24-32); TOTAL PROTEIN 6.6 G/DL (6.4-8.2); eCRCL 27 ML/MIN; eGFR 29 ML/MIN
[2024-06-13 07:44] LABS: POTASSIUM 3.7 MMOL/L (3.5-5.1)
[2024-06-13 08:00] VITALS: RESP 18; O2SAT 94
[2024-06-13] MEDS: allopurinol 300 MG tablet PO SCH (08:33)
[2024-06-13 11:00] VITALS: BP 121/61; PULSE 77; RESP 18; TEMP 98.6; O2SAT 98
== END 2024-06-13 14:35 | disposition home or self-care (01) | DRG 291 ==
LOC: ER 04:36 → ED HOLD 07:45 → PCU 3S 17:45
PROVIDERS: ADMIT Nurse Practitioner Family; ATTEND Nurse Practitioner Family
DX: I11.0 Hypertensive heart disease with heart failure (principal); I50.23 Acute on chronic systolic (congestive) heart failure; J96.01 Acute respiratory failure with hypoxia; N17.9 Acute kidney failure, unspecified; G62.9 Polyneuropathy, unspecified; Z66 Do not resuscitate; I48.91 Unspecified atrial fibrillation; E03.9 Hypothyroidism, unspecified; Z88.0 Allergy status to penicillin; Z95.810 Presence of automatic (implantable) cardiac defibrillator; I25.2 Old myocardial infarction; Z79.899 Other long term (current) drug therapy
CPT/HCPCS: 36415; 36600; 71045; 80053; 82803; 83605; 83735; 83880; 84439; 84443; 84484; 84550; 85018; 85025; 87081; 93005; 96374; 97161; 97530; 99291; A4615; G0378; J1644; J1940; J2405

== ENCOUNTER 2024-11-20 15:58 | Emergency (ER) | payer MEDICARE ==
[~2024-11-20] VITALS: Ht 190.5 cm; Wt 101.0 kg
[2024-11-20 16:02] VITALS: TEMP 97.8
--- NOTE | 2024-11-20 16:11 | ELECTROCARDIOGRAPH REPORT ---
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
[2024-11-20 16:32] LABS: BASOPHILS % (AUTO) 0.8 % (0-1); EOSINOPHILS # (AUTO) 0.1 X10'3 (0-0.9); EOSINOPHILS % (AUTO) 2.2 % (0-6); HEMATOCRIT 39.1 % (42.0-52.0); HEMOGLOBIN 13.1 g/dl (14.0-17.9); LYMPHOCYTES # (AUTO) 1.7 X10'3 (1.1-4.8); LYMPHOCYTES % (AUTO) 28.1 % (21-51); MEAN CORPUSCULAR HEMOGLOBIN 32.2 PG (27.0-31.0); MEAN CORPUSCULAR HGB CONC 33.4 g/dL (33.0-36.5); MEAN CORPUSCULAR VOLUME 96.3 FL (78-98); MEAN PLATELET VOLUME 8.4 FL (7.4-10.4); MONOCYTES # (AUTO) 0.7 X10'3 (0-0.9); MONOCYTES % (AUTO) 10.9 % (2-12); NEUTROPHILS # (AUTO) 3.5 X10'3 (1.8-7.7); PLATELET COUNT 175 X10'3 (140-440); RED BLOOD COUNT 4.06 X10'6 (4.70-6.10)
--- NOTE | 2024-11-20 16:34 | RADIOLOGY REPORT ---
CHEST RADIOGRAPH Indication: CP Technique: Single frontal view of the chest was obtained COMPARISON: DI CHEST,SINGLE VIEW on DOS: 06/11/24, DI CHEST,SINGLE VIEW on DOS: 02/14/24, DI CHEST,SING LE VIEW on DOS: 10/26/23 FINDINGS: Lines and Tubes: None Lungs: Minimal left basilar scarring Pleura: No effusion. No pneumothorax. Cardiomediastinal contours: Mild cardiomegaly. Vascular calcification in the aortic arch. Bones: Unremarkable IMPRESSION: 1. Mild cardiomegaly No infiltrates
[2024-11-20 16:44] LABS: ALBUMIN 3.6 G/DL (3.4-5.0); ANION GAP 10 (8-16); BLOOD UREA NITROGEN 30 MG/DL (7-18); BUN/CREATININE RATIO 14.9 (10.0-20.0); CALCIUM 9.3 MG/DL (8.5-10.1); CHLORIDE 106 MMOL/L (99-107); CREATININE 2.02 MG/DL (0.60-1.10); GLUCOSE 108 MG/DL (70-104); POTASSIUM 3.5 MMOL/L (3.5-5.1); SODIUM 141 MMOL/L (135-145); TOTAL CARBON DIOXIDE 24.7 MMOL/L (24-32); eCRCL 30 ML/MIN; eGFR 31 ML/MIN
--- NOTE | 2024-11-20 16:48 | Physician Documentation ---
History of Present Illness ~ Chief Complaint: Confused Stated Complaint: CONFUSSION Time Seen by MD: 20:37 Primary Medical Doctor: SUKHWINDER DUNCAN This is an 89-year-old male who presents reporting worsening confusion, patient reports that he has had episodes of confusion in the past over the last several years. Patient reports no fever or dysuria. Patient does report constipation. Patient initially reported no chest pain however then told triage nurse he had experienced some chest pain. Had long discussion with the patient for why he is here. He does talk about his confusion however this is chronic in nature and he talks about how he has been admitted up in organ for this. He also endorses concerns of his blood pressures being lower in the 140's as it is usually higher than that. His main concern is his abdominal pain that he associates with constipation. He has chronic constipation and takes regular [id number] remedies for this. He has had nothing for the pain. He can not remember in the last bowel movement he had was. He has denied chest pain to me Medication Reconciliation Allergies: Coded Allergies: Penicillins (Verified Allergy, Unknown, 02/14/24) Scheduled Allopurinol* (Allopurinol*), 300 MG PO DAILY, (Reported) Bupropion Hcl SR* (Wellbutrin SR*), 100 MG PO DAILY, (Reported) Furosemide (Furosemide), 1 TAB PO DAILY, (Reported) Levothyroxine Sodium (Levothyroxine Sodium), 2 TAB PO QAM, (Reported) Losartan Potassium (Losartan Potassium), 50 MG PO DAILY Metoprolol Succinate (Metoprolol Succinate), 1 TAB PO DAILY, (Reported) Omeprazole* (Prilosec*), 40 MG PO DAILY, (Reported) Pregabalin (Pregabalin), 1 CAP PO HS, (Reported) Pregabalin (Pregabalin), 1 CAP PO Q12H Rosuvastatin Calcium (Rosuvastatin Calcium), 1 TAB PO DAILY, (Reported) Spironolactone (Spironolactone), 1 TAB PO DAILY, (Reported) Miscellaneous Medications Warfarin Sodium (Warfarin Sodium), (Reported) Past Medical History Past Medical History: Peripheral Neuropathy, Congestive Heart Failure, Myocardial Infarction Alcohol Use: Occasionally Drug Use: none Lives with: Alone Lives In: Home Occupation: retired Review of Systems ROS All review of systems negative except as per HPI Physical Exam Vital Signs: Temperature: 97.8, Source: Temporal, Heart Rate: 70, Respiratory Rate: 18, BP: 128/68, Pulse Oximetry: 96, Weight: 101.000 Oxygen Flow Rate: 0 Physical Exam General: Patient is awake, alert, oriented and cooperative. Lose his train of thought Head: Normocephalic and atraumatic. Eyes: Conjunctival normal. EOMI. PERRL. ENT: Mucous membranes moist. Neck: Supple, trachea is midline. Chest: Clear to auscultation bilaterally without rales, rhonchi, or wheezes. There is no accessory muscle use or retractions. Cardiac: RRR without murmurs, gallops, or rubs. Abd: Soft, nondistended, mild diffuse tenderness to palpation without peritonitis Progress Results/Orders Results/Orders Orders - DHEERAJ VELA MD Ct Abdomen Pelvis (11/20/24 20:45) General Nursing Order (11/20/24 22:33) Completed Orders - DHEERAJ VELA MD Ct Abdomen Pelvis (11/20/24 20:45) Mineral Oil Enema (Mineral Oil Enema) (11/20/24 23:20) Medications Received in ER Medications (Trade) Dose Ordered Sig/Deanne Route PRN Reason Start Time Stop Time Status Last Admin Dose Admin (mineral oil enema) 133 ml DAILY ONCE RC 11/20/24 23:20 11/20/24 23:21 DC 11/20/24 23:45 133 ML Vital Signs 11/20/24 11/20/24 11/20/24 16:02 21:37 22:37 Temp 97.8 Pulse 70 70 70 Resp 18 15 20 B/P (MAP) 128/68 120/59 (79) 128/70 (89) Pulse Ox 96 95 97 O2 Flow Rate 0 0 0 Laboratory Tests Test 11/20/24 16:17 11/20/24 18:21 11/20/24 19:34 11/20/24 20:37 White Blood Count 6.0 Red Blood Count 4.06 L Hemoglobin 13.1 L Hematocrit 39.1 L Mean Corpuscular Volume 96.3 Mean Corpuscular Hemoglobin 32.2 H Mean Corpuscular Hemoglobin Concent 33.4 Red Cell Distribution Width 16.0 H Platelet Count 175 Mean Platelet Volume 8.4 Neutrophils (%) (Auto) 58.0 Lymphocytes (%) (Auto) 28.1 Monocytes (%) (Auto) 10.9 Eosinophils (%) (Auto) 2.2 Basophils (%) (Auto) 0.8 Neutrophils # (Auto) 3.5 Lymphocytes # (Auto) 1.7 Monocytes # (Auto) 0.7 Eosinophils # (Auto) 0.1 Basophils # (Auto) 0.0 CBC Comment Sodium Level 141 Potassium Level 3.5 Chloride Level 106 Carbon Dioxide Level 24.7 Anion Gap 10 Blood Urea Nitrogen 30 H Creatinine 2.02 H Estimated GFR/1.73 m2 31 BUN/Creatinine Ratio 14.9 Glucose Level 108 H Calcium Level 9.3 Troponin I High Sensitivity 42 46 46 Albumin 3.6 Chemistry Comments Troponin I High Sens Percent Delta 9 0 Troponin I Hi Sens Absolute Change 4 0 Urine Specimen Description Voided Urine Color Yellow Urine Clarity Clear Urine pH 6.0 Urine Specific [place] 1.025 Urine Protein 100 H Urine Glucose (UA) Negative Urine Ketones Trace H Urine Occult Blood Moderate H Urine Nitrite Negative Urine Bilirubin Small Urine Urobilinogen 0.2 Urine Leukocyte Esterase Negative Urine RBC 3-10 Urine WBC 0-4 Urine Squamous Epithelial Cells Few Urine Amorphous Urates 1+ Urine Bacteria None seen Urine Hyaline Casts 3-5 Urine Mucus Moderate Urine Culture Indicated Not ind Volume Urine Centrifuged 10 ml Urine Comment EKG/XRAY/CT/US/VASC/MRI EKG : Additional Comment EKG interpreted by myself shows time of 16 10, rate 70, atrial flutter, left axis deviation, left bundle-branch block, paced rhythm, no further analysis secondary to paced rhythm Chest X-Ray : Additional Comments Exam: CHEST,SINGLE VIEW CHEST RADIOGRAPH Indication: CP Technique: Single frontal view of the chest was obtained COMPARISON: DI CHEST,SINGLE VIEW on DOS: 06/11/24, DI CHEST,SINGLE VIEW on DOS: 02/14/24, DI CHEST,SINGLE VIEW on DOS: 10/26/23 FINDINGS: Lines and Tubes: None Lungs: Minimal left basilar scarring Pleura: No effusion. No pneumothorax. Cardiomediastinal contours: Mild cardiomegaly. Vascular calcification in the aortic arch. Bones: Unremarkable IMPRESSION: 1. Mild cardiomegaly No infiltrates Medical Decision Making Findings Patient presented to the emergency room with chief complaint of abdominal pain and constipation. Differentials include but are not limited to constipation, diverticulitis, pancreatitis, intra-abdominal infection, small-bowel obstruction therefore labs and imaging indicated. Labs and imaging reassuring. Patient has received an enema in his had a bowel movement and feels better and would like to go home. Departure Disposition: HOME / SELF CARE / HOMELESS Impression: Primary Impression: Constipation Condition: Improved Discharge Instructions: Constipation, Adult Additional Instructions: Increase all constipation medications until having regular bowel movements. Stay hydrated Referrals: NO PRIMARY CARE PROVIDER (PCP) Education Educated: Patient Educated regarding: diagnosis, treatment, need for follow up Signature Scribe Signature: No scribe Attestation: The note accurately reflects work and decisions made by me.Dheeraj Vela MD 11/21/24 01:57 JEAN MARIE GREGORIO Nov 20, 2024 16:48 DHEERAJ VELA MD Nov 20, 2024 20:56
[2024-11-20 20:46] LABS: BILIRUBIN,URINE SMALL (Neg); CLARITY,URINE CLEAR (Clear); COLOR,URINE YELLOW (Yellow); GLUCOSE, URINE NEGATIVE (Neg); KETONES,URINE TRACE mg/dl (Neg); LEUKOCYTE ESTERASE ,URINE NEGATIVE (Neg); NITRITES, URINE NEGATIVE (Neg); OCCULT BLOOD,URINE MODERATE (Neg); PROTEIN,URINE 100 mg/dl (Neg); UROBILINOGEN,URINE 0.2 E.U/dL (0.2-1.0)
[2024-11-20 20:48] LABS: UA COLLECTION TYPE VOIDED
[2024-11-20 20:52] LABS: MUCUS STRANDS MODERATE /LPF (Neg); SQUAMOUS EPITHELIAL CELL,UR FEW /LPF (FEW)
[2024-11-20 20:53] LABS: BACTERIA,URINE NONE SEEN /HPF (Neg)
[2024-11-20 20:54] LABS: WBC,URINE 0-4 /HPF (0-4)
[2024-11-20 20:55] LABS: AMORPHOUS URATES 1+
--- NOTE | 2024-11-20 22:11 | RADIOLOGY REPORT ---
CT SCAN ABDOMEN AND PELVIS WITHOUT CONTRAST CLINICAL HISTORY: abd pain TECHNIQUE: Helical axial images are obtained from the lung bases through the pelvis without oral cont rast. No intravenous contrast was administered. Coronal and sagittal reformatted images were generate d from thin section reconstructions. One or more of the following radiation dose reduction techniques were used for this examination: automated exposure control, adjustment of the mA and/or kV according to patient size, use of iterative reconstruction technique. COMPARISON: CT CT ABDOMEN PELVIS on DOS: 10/26/23 FINDINGS: LOWER THORAX: Mild dependent atelectasis/scarring in the imaged lung bases. The heart is enlarged. ABDOMEN AND PELVIS: Evaluation of visceral and vascular structures is limited due to lack of contrast administration. As visualized, the unenhanced liver, spleen, pancreas and adrenals appear grossly unremarkable. The g allbladder is mildly distended. Tiny dependent cholelithiasis. No other CT evidence of cholecystitis at this time. No hydroureteronephrosis. Bilateral renal cystic hypodensity is again noted. Aortoiliac atherosclerotic calcifications. No evidence of abdominal aortic aneurysm. No evidence of small-bowel obstruction. Visualized appendix appears normal caliber. No free intraperi toneal air or fluid identified. Mild symmetrical thickening of the urinary bladder. Small bilateral fat containing inguinal hernias. Tiny fat containing umbilical hernia. No destructive osseous lesions identified. Chronic appearing superior endplate compression of L1. IMPRESSION: No bowel obstruction, free intraperitoneal air / fluid or sizable inflammatory collections identified on this noncontrast examination. Tiny dependent cholelithiasis without CT evidence of cholecystitis at this time. Mild symmetrical thickening of the urinary bladder. Correlate for possible UTI/cystitis. A few other chronic appearing findings as above.
[2024-11-20] MEDS: mineral oil 133ml enema RC ONE (23:45)
[2024-11-21 01:55] VITALS: BP 134/73; PULSE 70; RESP 17; O2SAT 96
[2024-11-21] MEDS ORDERED: MAGN296S68 PO (15:45)
== END 2024-11-21 02:29 | disposition home or self-care (01) ==
LOC: ER 15:58
DX: K59.00 Constipation, unspecified (principal); I48.91 Unspecified atrial fibrillation; I50.9 Heart failure, unspecified; I25.2 Old myocardial infarction; Z88.0 Allergy status to penicillin
CPT/HCPCS: 36415; 71045; 74176; 80048; 81001; 84484; 85025; 93005; 99285

== ENCOUNTER 2024-11-21 11:57 | Emergency (ER) | payer MEDICARE ==
[~2024-11-21] VITALS: Ht 190.5 cm; Wt 77.8 kg
[2024-11-21 11:59] VITALS: TEMP 97.4
[2024-11-21 12:28] LABS: BASOPHILS % (AUTO) 0.8 % (0-1); EOSINOPHILS # (AUTO) 0.1 X10'3 (0-0.9); EOSINOPHILS % (AUTO) 1.8 % (0-6); HEMATOCRIT 39.7 % (42.0-52.0); HEMOGLOBIN 13.4 g/dl (14.0-17.9); LYMPHOCYTES # (AUTO) 1.5 X10'3 (1.1-4.8); LYMPHOCYTES % (AUTO) 25.4 % (21-51); MEAN CORPUSCULAR HEMOGLOBIN 32.6 PG (27.0-31.0); MEAN CORPUSCULAR HGB CONC 33.7 g/dL (33.0-36.5); MEAN CORPUSCULAR VOLUME 96.7 FL (78-98); MEAN PLATELET VOLUME 8.1 FL (7.4-10.4); MONOCYTES # (AUTO) 0.6 X10'3 (0-0.9); MONOCYTES % (AUTO) 10.2 % (2-12); NEUTROPHILS # (AUTO) 3.8 X10'3 (1.8-7.7); NEUTROPHILS % (AUTO) 61.8 % (42-75); PLATELET COUNT 178 X10'3 (140-440); RED BLOOD COUNT 4.11 X10'6 (4.70-6.10); RED CELL DISTRIBUTION WIDTH 15.8 % (11.5-14.5); WHITE BLOOD COUNT 6.1 X10'3 (4.5-11.0)
--- NOTE | 2024-11-21 12:30 | Physician Documentation ---
History of Present Illness ~ Chief Complaint: Constipation Stated Complaint: CONFUSION Time Seen by MD: 14:46 Primary Medical Doctor: [facility] HPI 89-year-old male who was seen in the ED yesterday for constipation returns for ongoing constipation. Patient continues to state that he continues to pass gas and feels as though he has ongoing constipation. Medication Reconciliation Allergies: Coded Allergies: Penicillins (Verified Allergy, Unknown, 02/14/24) Scheduled Allopurinol* (Allopurinol*), 300 MG PO DAILY, (Reported) Bupropion Hcl SR* (Wellbutrin SR*), 100 MG PO DAILY, (Reported) Furosemide (Furosemide), 1 TAB PO DAILY, (Reported) Levothyroxine Sodium (Levothyroxine Sodium), 2 TAB PO QAM, (Reported) Losartan Potassium (Losartan Potassium), 50 MG PO DAILY Magnesium Citrate (MAGNESIUM CITRATE oral solution), 296 ML PO ONCE Metoprolol Succinate (Metoprolol Succinate), 1 TAB PO DAILY, (Reported) Omeprazole* (Prilosec*), 40 MG PO DAILY, (Reported) Pregabalin (Pregabalin), 1 CAP PO HS, (Reported) Pregabalin (Pregabalin), 1 CAP PO Q12H Rosuvastatin Calcium (Rosuvastatin Calcium), 1 TAB PO DAILY, (Reported) Spironolactone (Spironolactone), 1 TAB PO DAILY, (Reported) Miscellaneous Medications Warfarin Sodium (Warfarin Sodium), (Reported) Past Medical History Past Medical History: Peripheral Neuropathy, Congestive Heart Failure, Myocardial Infarction Alcohol Use: Occasionally Drug Use: none Lives with: Alone Lives In: Home Occupation: retired Review of Systems All Other Systems at this time: Reviewed and Negative Physical Exam Vital Signs: Temperature: 97.4, Source: Temporal, Heart Rate: 70, Respiratory Rate: 15, BP: 131/69, Pulse Oximetry: 98, Weight: 77.800 Physical Exam General: Alert, no apparent distress. Gastrointestinal: Soft, nontender, mild distention Bowels sounds present. Neurologic: Oriented x4. Psychiatric: Normal mood and affect. Skin: Normal color, warm and dry. No edema, no ecchymosis. Progress Results/Orders Results/Orders Orders - MICHAEL TOTH WOMEN'S SWIM COACH Abdomen,Single View(Kub) (11/21/24 ) Completed Orders - JANEY,MICHAEL H WOMEN'S SWIM COACH Abdomen,Single View(Kub) (11/21/24 ) Magnesium Citrate Oral Opal. (Magnesium C (11/21/24 15:45) Medications Received in ER Medications (Trade) Dose Ordered Sig/Deanne Route PRN Reason Start Time Stop Time Status Last Admin Dose Admin (magnesium citrate oral solution) 296 ml ONCE ONCE PO 11/21/24 15:45 11/21/24 15:46 DC 11/21/24 16:02 296 ML Vital Signs 11/21/24 11/21/24 11/21/24 11:59 14:24 16:02 Temp 97.4 Pulse 70 7 Resp 15 18 18 B/P (MAP) 131/69 132/68 Pulse Ox 98 97 Laboratory Tests Test 11/21/24 12:13 White Blood Count 6.1 Red Blood Count 4.11 L Hemoglobin 13.4 L Hematocrit 39.7 L Mean Corpuscular Volume 96.7 Mean Corpuscular Hemoglobin 32.6 H Mean Corpuscular Hemoglobin Concent 33.7 Red Cell Distribution Width 15.8 H Platelet Count 178 Mean Platelet Volume 8.1 Neutrophils (%) (Auto) 61.8 Lymphocytes (%) (Auto) 25.4 Monocytes (%) (Auto) 10.2 Eosinophils (%) (Auto) 1.8 Basophils (%) (Auto) 0.8 Neutrophils # (Auto) 3.8 Lymphocytes # (Auto) 1.5 Monocytes # (Auto) 0.6 Eosinophils # (Auto) 0.1 Basophils # (Auto) 0.0 CBC Comment Sodium Level 139 Potassium Level 3.5 Chloride Level 105 Carbon Dioxide Level 26.8 Anion Gap 7 L Blood Urea Nitrogen 26 H Creatinine 1.88 H Estimated GFR/1.73 m2 34 BUN/Creatinine Ratio 13.8 Glucose Level 100 Calcium Level 9.4 Total Bilirubin 1.2 H Aspartate Amino Transf (AST/SGOT) 28 Alanine Aminotransferase (ALT/SGPT) 30 Alkaline Phosphatase 70 Total Protein 7.3 Albumin 3.7 Globulin 3.6 Albumin/Globulin Ratio 1.0 L Lipase 113 H Chemistry Comments Medical Decision Making Findings Patient's KUB indicated he continues to have a large stool burden per my interpretation. Patient has only used a rectal suppositories at this time. After his visit in the ED yesterday ER nurse reported gross stool and bowel movements were achieve.d Going to start him on Mag citrate and clean him out Diff Dx GI Bleed:Consideration: Include: AE fistula, Angiodysplasia, Bleeding diathesis, Blood loss anemia, Carcinoma, Diverticulosis, Diverticulitis, Esophageal varicies, Esophagitis, Gastritis, Gastroenteritis, Inflammatory BD, Jessica-Manning syndrome, Meckel's diverticulum, PUD, Other Departure Disposition: HOME / SELF CARE / HOMELESS Impression: Primary Impression: Fecal impaction Additional Impression: Constipation Condition: Stable Discharge Instructions: Fecal Impaction, Constipation, Adult Referrals: NO PRIMARY CARE PROVIDER (PCP) Prescriptions Magnesium Citrate (MAGNESIUM CITRATE oral solution) 296 Ml Solution 296 ML PO ONCE for 1 Day, #296 ML 0 Refills Prov: MICHAEL TOTH WOMEN'S SWIM COACH 11/21/24 Signature Scribe Signature: tr Attestation: Scribed for Michael Toth Wafer Fabrication Operator by Michael Toth - VICKY . 11/21/24 18:21 MICHAEL TOTH NP Nov 21, 2024 12:30
[2024-11-21 12:50] LABS: ALANINE AMINOTRANSFERASE 30 U/L (12-78); ALBUMIN 3.7 G/DL (3.4-5.0); ALKALINE PHOSPHATASE 70 IU/L (46-116); ANION GAP 7 (8-16); ASPARTATE AMINO TRANSFERASE 28 U/L (10-37); BILIRUBIN,TOTAL 1.2 MG/DL (0.1-1.0); BLOOD UREA NITROGEN 26 MG/DL (7-18); BUN/CREATININE RATIO 13.8 (10.0-20.0); CALCIUM 9.4 MG/DL (8.5-10.1); CHLORIDE 105 MMOL/L (99-107); CREATININE 1.88 MG/DL (0.60-1.10); GLUCOSE 100 MG/DL (70-104); LIPASE 113 U/L (16-77); POTASSIUM 3.5 MMOL/L (3.5-5.1); SODIUM 139 MMOL/L (135-145); TOTAL CARBON DIOXIDE 26.8 MMOL/L (24-32); TOTAL PROTEIN 7.3 G/DL (6.4-8.2); eCRCL 29 ML/MIN; eGFR 34 ML/MIN
--- NOTE | 2024-11-21 15:30 | RADIOLOGY REPORT ---
INDICATION: pconstipation TECHNIQUE: One frontal supine radiograph was obtained. COMPARISON: None FINDINGS: The bowel loops are nondilated. Free air cannot be excluded on a supine film. The lung base s are clear. The visualized osseous structures appear intact. IMPRESSION: 1. Large stool burden..
[2024-11-21] MEDS ORDERED: MAGN296S68 PO (15:45)
[2024-11-21 16:02] VITALS: BP 132/68; PULSE 7; RESP 18; O2SAT 97
[2024-11-21] MEDS: magnesium citrate 296ml oral solution PO ONE (16:02)
== END 2024-11-21 16:06 | disposition home or self-care (01) ==
LOC: ER 11:58
DX: K56.41 Fecal impaction (principal); I25.2 Old myocardial infarction; I50.9 Heart failure, unspecified; G62.9 Polyneuropathy, unspecified; Z88.0 Allergy status to penicillin; Z79.899 Other long term (current) drug therapy; Z72.89 Other problems related to lifestyle; Z60.2 Problems related to living alone
CPT/HCPCS: 36415; 74018; 80053; 83690; 85025; 99284

== ENCOUNTER 2025-01-20 16:31 | Emergency (ER) | payer MEDICARE, OTHER ==
[~2025-01-20] VITALS: Ht 190.5 cm; Wt 92.8 kg
[~2025-01-20 16:31] MED LIST changes: +MAGN296S68 PO
[2025-01-20 16:56] VITALS: TEMP 97.6
--- NOTE | 2025-01-20 18:14 | Physician Documentation ---
History of Present Illness ~ Chief Complaint: Constipation Stated Complaint: ABD PAIN Time Seen by MD: 18:14 Primary Medical Doctor: [facility] HPI 89-year-old male, history of chronic constipation, who presents with worsening constipation. He tells me that he has not had a bowel movement for 1 week. He says he has always had constipation, but sometimes it gets worse. He has taken multiple treatments including laxatives, and is trying to drink a lot of water, but still can not have a bowel movement. He tells me the only thing that helps in the past is a large enema. He does have some intermittent abdominal cramping, but otherwise no severe abdominal pain. No nausea or vomiting. He is still passing gas. He feels like he is urinating normally. Medication Reconciliation Allergies: Coded Allergies: Penicillins (Verified Allergy, Unknown, 02/14/24) Scheduled Allopurinol* (Allopurinol*), 300 MG PO DAILY, (Reported) Bupropion Hcl SR* (Wellbutrin SR*), 100 MG PO DAILY, (Reported) Furosemide (Furosemide), 1 TAB PO DAILY, (Reported) Levothyroxine Sodium (Levothyroxine Sodium), 2 TAB PO QAM, (Reported) Losartan Potassium (Losartan Potassium), 50 MG PO DAILY Magnesium Citrate (MAGNESIUM CITRATE oral solution), 296 ML PO ONCE Metoprolol Succinate (Metoprolol Succinate), 1 TAB PO DAILY, (Reported) Omeprazole* (Prilosec*), 40 MG PO DAILY, (Reported) Pregabalin (Pregabalin), 1 CAP PO HS, (Reported) Pregabalin (Pregabalin), 1 CAP PO Q12H Rosuvastatin Calcium (Rosuvastatin Calcium), 1 TAB PO DAILY, (Reported) Spironolactone (Spironolactone), 1 TAB PO DAILY, (Reported) Miscellaneous Medications Warfarin Sodium (Warfarin Sodium), (Reported) Past Medical History Past Medical History: Peripheral Neuropathy, Congestive Heart Failure, Myocardial Infarction Alcohol Use: Occasionally Drug Use: none Lives with: Alone Lives In: Home Occupation: retired Review of Systems Constitutional: Denies: fever Gastrointestinal: Reports: abdominal pain, constipated; Denies: nausea, vomiting Physical Exam Vital Signs: Temperature: 97.6, Source: Temporal, Heart Rate: 70, Respiratory Rate: 18, BP: 126/69, Pulse Oximetry: 97, Weight: 92.800 Oxygen Flow Rate: 0 Physical Exam General: This is a pleasant and overall well-appearing elderly man sitting quietly in bed HEENT: Atraumatic, oropharynx is moist Heart: Regular rate and rhythm, normal-appearing peripheral perfusion Lungs: normal work of breathing, normal oxygen saturation on room air Abdomen: Soft, mildly distended abdomen. No significant tenderness to deep palpation in all quadrants, no rebound or guarding : Normal rectal exam including normal rectal tone, and no large stool ball or fecal impaction Neuro: Alert and oriented Psychiatric: Calm and cooperative with exam Progress Results/Orders Results/Orders Orders - GINI BALTAZAR MD * Soap Suds Enema* (01/20/25 19:55) Vital Signs 01/20/25 01/20/25 01/20/25 01/20/25 16:56 18:18 18:20 18:33 Temp 97.6 Pulse 70 70 Resp 18 23 22 16 B/P (MAP) 126/69 129/74 (92) Pulse Ox 97 98 O2 Flow Rate 0 0 Medical Decision Making Diff Dx N/V/D:Considerations: Include: Dehydration, Urinary obstruction Diff Dx Rectal:Considerations: Include: Impaction Additional Comments The patient presents with chronic constipation. He has a benign abdominal exam. He has no other symptoms to suggest a bowel obstruction. I do not feel that abdominal imaging is indicated. Plan: Bladder scan and drain bladder if necessary, rectal exam for disimpaction if necessary, enema. the patient does not have urinary retention. No fecal impaction on exam. He was given a soapsuds enema. He will be discharged with ongoing outpatient management. Departure Time of Disposition: 20:10 Disposition: HOME / SELF CARE / HOMELESS Impression: Primary Impression: Constipation Condition: Stable Discharge Instructions: Constipation, Adult Referrals: NO PRIMARY CARE PROVIDER (PCP) Education Educated: Patient Educated regarding: diagnosis, treatment, need for follow up Signature Scribe Signature: na Attestation: GINI Kwon MD Jan 20, 2025 18:14
[2025-01-20 20:00] VITALS: BP 132/74; PULSE 72; RESP 20; O2SAT 98
== END 2025-01-20 20:58 | disposition home or self-care (01) ==
LOC: ER 16:32
DX: K59.00 Constipation, unspecified (principal); I25.2 Old myocardial infarction; I50.9 Heart failure, unspecified; Z88.0 Allergy status to penicillin
CPT/HCPCS: 51798; 99284; C1758

== ENCOUNTER 2025-01-21 21:56 | Emergency (ER) | payer MEDICARE, OTHER ==
[~2025-01-21] VITALS: Ht 190.5 cm; Wt 93.2 kg
--- NOTE | 2025-01-21 23:12 | Physician Documentation ---
History of Present Illness General Chief Complaint: Constipation Stated Complaint: REEVAL Time Seen by MD: 23:11 Primary Medical Doctor: [facility] History of Present Illness Initial Comments The patient is an 89-year-old male states he has had lifelong problems with constipation complains of constipation. Patient states he was seen in the emergency room yesterday and received an enema he states he only had some liquid come back out he did not have much of a stool load removed with the enema, the patient feels like he still has a significant stool load and he still feels constipated. Patient denies any nausea vomiting diarrhea read the patient's symptoms are moderate and persistent. Patient denies any fevers. Medication Reconciliation Allergies: Coded Allergies: Penicillins (Verified Allergy, Unknown, 02/14/24) Scheduled Allopurinol* (Allopurinol*), 300 MG PO DAILY, (Reported) Bupropion Hcl SR* (Wellbutrin SR*), 100 MG PO DAILY, (Reported) Furosemide (Furosemide), 1 TAB PO DAILY, (Reported) Levothyroxine Sodium (Levothyroxine Sodium), 2 TAB PO QAM, (Reported) Losartan Potassium (Losartan Potassium), 50 MG PO DAILY Magnesium Citrate (MAGNESIUM CITRATE oral solution), 296 ML PO ONCE Metoprolol Succinate (Metoprolol Succinate), 1 TAB PO DAILY, (Reported) Omeprazole* (Prilosec*), 40 MG PO DAILY, (Reported) Pregabalin (Pregabalin), 1 CAP PO HS, (Reported) Pregabalin (Pregabalin), 1 CAP PO Q12H Rosuvastatin Calcium (Rosuvastatin Calcium), 1 TAB PO DAILY, (Reported) Spironolactone (Spironolactone), 1 TAB PO DAILY, (Reported) Miscellaneous Medications Warfarin Sodium (Warfarin Sodium), (Reported) Past Medical History Past Medical History: Peripheral Neuropathy, Congestive Heart Failure, Myocardial Infarction Smoking: Non-Smoker Alcohol Use: Occasionally Drug Use: none Lives with: Alone Lives In: Home Occupation: retired Review of Systems All Other Systems at this time: Reviewed and Negative Physical Exam Physical Exam Vital Signs: Temperature: 97.5, Source: Temporal, Heart Rate: 70, Respiratory Rate: 14, BP: 130/71, Pulse Oximetry: 98, Weight: 93.180 Oxygen Flow Rate: 0 Physical Exam VITALS: Reviewed and as above. GENERAL: Alert, no apparent distress. HEENT: Normocephalic, atraumatic, PERRL, EOMI, dry mucosa, no erythema GI: Soft, non-tender, bowels sounds present, no rebound, guarding, or rigidity BACK: No CVA tenderness, or swelling MUSCULOSKELETAL: No deformities, no edema SKIN: Warm and dry, no rash NEURO: Oriented x4, No motor or sensory deficit PSYCH: Normal mood and affect, no agitation Progress Results/Orders Results/Orders Orders - OHLJOE CORTEZ MD Enema (01/21/25 ) Ct Abdomen Pelvis (01/22/25 00:43) Completed Orders - JOE SARABIA MD Lactulose Oral Solution (Cephulac Oral S (01/21/25 23:25) Potassium Cl Sr Tablet (K-Dur Tablet) (01/21/25 23:25) Ct Abdomen Pelvis (01/22/25 00:43) Cbc/Diff (01/22/25 01:17) BMP (01/22/25 01:17) Laboratory Tests Test 01/22/25 01:30 White Blood Count 7.9 Red Blood Count 4.27 L Hemoglobin 14.2 Hematocrit 42.0 Mean Corpuscular Volume 98.3 H Mean Corpuscular Hemoglobin 33.3 H Mean Corpuscular Hemoglobin Concent 33.9 Red Cell Distribution Width 15.9 H Platelet Count 159 Mean Platelet Volume 8.6 Neutrophils (%) (Auto) 57.4 Lymphocytes (%) (Auto) 31.4 Monocytes (%) (Auto) 8.6 Eosinophils (%) (Auto) 1.8 Basophils (%) (Auto) 0.8 Neutrophils # (Auto) 4.5 Lymphocytes # (Auto) 2.5 Monocytes # (Auto) 0.7 Eosinophils # (Auto) 0.1 Basophils # (Auto) 0.1 CBC Comment Sodium Level 141 Potassium Level 3.1 L Chloride Level 104 Carbon Dioxide Level 27.9 Anion Gap 9 Blood Urea Nitrogen 24 H Creatinine 2.27 H Estimated GFR/1.73 m2 27 BUN/Creatinine Ratio 10.6 Glucose Level 84 Calcium Level 9.5 Albumin 3.7 Chemistry Comments EKG/XRAY/CT/US/VASC/MRI CT : Impression Comparison Study: DI ABDOMEN,SINGLE VIEW(KUB) on DOS: 11/21/24, CT CT ABDOMEN PELVIS on DOS: 11/20/24, CT CT ABDOMEN PELVIS on DOS: 10/26/23 TECHNIQUE: Multidetector CT of the abdomen and pelvis was performed from lung bases to pubic symphysis. Imaging was performed without IV contrast. Axial, coronal, and sagittal multiplanar reformats were obtained from the axial data set by the technologist. RADIATION DOSE: CTDI vol 23.1 mGy. DLP 1393.71 mGy.cm Findings: Limited evaluation of the solid organs in the absence of IV contrast. Lungs: Basilar atelectasis/scarring. Liver: Unremarkable. Spleen: Unremarkable. Pancreas: Unremarkable. Gallbladder: Cholelithiasis. Adrenals: Unremarkable Kidneys: Mild bilateral renal cortical scarring. 13 mm indeterminate right renal lesion. Left renal cyst. Pelvic Viscera: Unremarkable. Vasculature: Moderate aortoiliac atherosclerosis. Retroperitoneum: Unremarkable. Bowel: No bowel obstruction. The appendix is normal. Musculoskeletal: Grade 1 anterolisthesis of L4 on 5. Chronic compression of the superior endplate of L1. Soft tissues: Unremarkable Impression: 1. No acute abdominopelvic abnormality. 2. 13 mm indeterminate right renal lesion. If clinically indicated, this could be further assessed with a nonemergent MRI of the abdomen. 3. Additional findings as detailed. Electronically Signed by:TERESA NORIEGA MD Date & Time: 01/22/25136 Dictated by: TERESA NORIEGA MD Dictation date and time: 01/22/25136 Primary Care Provider: NO PRIMARY CARE PROVIDER cc: JOE SARABIA MD ~ Medical Decision Making Findings The patient's EKG was interpreted by me as showing a paced rhythm at a rate of 70 no further interpretation was attempted the time of the EKG was 2311. I interpreted the EKG. The patient complains of constipation he has a chronic history of constipation the patient has a benign exam he is otherwise well- appearing. The patient was given oral medications for constipation he also was found to have hypokalemia. The patient will be discharged with instructions to follow up as an outpatient. The patient's prior hospitalizations have been r eviewed the patient's pulse oximetry was interpreted as adequate and normal. Departure Impression: Primary Impression: Hypokalemia Additional Impression: Abdominal pain Qualified Codes: R10.30 - Lower abdominal pain, unspecified Discharge Instructions: Hypokalemia Referrals: NO PRIMARY CARE PROVIDER (PCP) Signature Scribe Signature: no Attestation: The note accurately reflects work and decisions made by me.Joe Sarabia MD 5 13:47 JOE SARABIA MD Jan 21, 2025 23:12
[2025-01-22] MEDS: potassium Cl 20 mEq SR tablet PO STA (01:21)
[2025-01-22] MEDS: lactulose 20gm/30ml cup PO ONE (01:21)
--- NOTE | 2025-01-22 01:40 | RADIOLOGY REPORT ---
Exam: CT CT ABDOMEN PELVIS History: constipation abdominal pain Comparison Study: DI ABDOMEN,SINGLE VIEW(KUB) on DOS: 11/21/24, CT CT ABDOMEN PELVIS on DOS: 11/20/24, CT CT ABDOMEN PELVIS on DOS: 10/26/23 TECHNIQUE: Multidetector CT of the abdomen and pelvis was performed from lung bases to pubic symphysi s. Imaging was performed without IV contrast. Axial, coronal, and sagittal multiplanar reformats were obtained from the axial data set by the technologist. RADIATION DOSE: CTDI vol 23.1 mGy. DLP 1393.71 mGy.cm Findings: Limited evaluation of the solid organs in the absence of IV contrast. Lungs: Basilar atelectasis/scarring. Liver: Unremarkable. Spleen: Unremarkable. Pancreas: Unremarkable. Gallbladder: Cholelithiasis. Adrenals: Unremarkable Kidneys: Mild bilateral renal cortical scarring. 13 mm indeterminate right renal lesion. Left renal c yst. Pelvic Viscera: Unremarkable. Vasculature: Moderate aortoiliac atherosclerosis. Retroperitoneum: Unremarkable. Bowel: No bowel obstruction. The appendix is normal. Musculoskeletal: Grade 1 anterolisthesis of L4 on 5. Chronic compression of the superior endplate of L1. Soft tissues: Unremarkable Impression: 1. No acute abdominopelvic abnormality. 2. 13 mm indeterminate right renal lesion. If clinically indicated, this could be further assessed w ith a nonemergent MRI of the abdomen. 3. Additional findings as detailed.
[2025-01-22 01:53] LABS: MEAN PLATELET VOLUME 8.6 FL (7.4-10.4); RED CELL DISTRIBUTION WIDTH 15.9 % (11.5-14.5)
[2025-01-22 02:05] LABS: CREATININE 2.27 MG/DL (0.60-1.10); TOTAL CARBON DIOXIDE 27.9 MMOL/L (24-32); eCRCL 26 ML/MIN; eGFR 27 ML/MIN
[2025-01-22 02:46] VITALS: BP 138/76; PULSE 70; RESP 18; TEMP 97.5; O2SAT 100
--- NOTE | 2025-01-22 05:43 | ELECTROCARDIOGRAPH REPORT ---
[facility] Test Date: 2025-01-21 Test Time: 23:12:30 Pat Name: MILVIA ALVARADO Department: EMERGENCY ROOM Room: Gender: M Tax Investigator: CHRISTY : 1935 Requested By: HUGH NUNN Order Number: [id number] Reading MD: Measurements Intervals [place] Rate: 70 P: 0 NM: 47 QRS: -53 QRSD: 210 T: 129 QT: 502 QTc: 542 Interpretive Statements A-V dual-paced complexes w/ some inhibition No further analysis attempted due to paced rhythm Please click the below link to view image of tracing.
== END 2025-01-22 02:45 | disposition home or self-care (01) ==
LOC: ER 21:56
DX: R10.9 Unspecified abdominal pain (principal); K59.00 Constipation, unspecified; E87.6 Hypokalemia; I50.9 Heart failure, unspecified; Z88.0 Allergy status to penicillin
CPT/HCPCS: 36415; 80048; 85025; 93005; 99285